=== PATIENT | male | born 1985 | race Caucasian/White ===

== ENCOUNTER 2020-07-07 23:22 | Inpatient (IN) | payer OTHER ==
[~2020-07-07] VITALS: Ht 172.7 cm; Wt 80.1 kg
[2020-07-08 00:07] LABS: BASO # 0.1 x10^3/uL (0.0-0.2); BASO % 0 % (0-3); EOS # 0.1 x10^3/uL (0.0-0.7); EOS % 1 % (0-3); HEMATOCRIT 49.7 % (39.0-53.0); HEMOGLOBIN 16.7 g/dL (13.0-17.5); LYMPH # 3.2 x10^3/uL (1.0-4.8); LYMPH % 24 % (24-48); MEAN CORPUSCULAR HEMOGLOBIN 30 pg (25-35); MEAN CORPUSCULAR HGB CONC 34 g/dL (31-37); MEAN CORPUSCULAR VOLUME 89 fL (79-100); MONO % 8 % (0-9); NEUT # 8.7 x10^3uL (1.8-7.7); NEUT % 66 % (31-73); PLATELET COUNT 226 x10^3/uL (140-400); RED BLOOD COUNT 5.56 x10^6/uL (4.30-5.70); RED CELL DISTRIBUTION WIDTH 13.8 % (11.5-14.5); WHITE BLOOD COUNT 13.1 x10^3/uL (4.0-11.0)
[2020-07-08 00:21] LABS: ALBUMIN 4.1 g/dL (3.4-5.0); ALBUMIN/GLOBULIN RATIO 1.5 (1.0-1.7); CALCIUM 9.7 mg/dL (8.5-10.1); CREATININE 1.3 mg/dL (0.7-1.3); GFR 62.1; POTASSIUM 3.5 mmol/L (3.5-5.1); TOTAL BILIRUBIN 0.5 mg/dL (0.2-1.0); TOTAL PROTEIN 6.9 g/dL (6.4-8.2)
--- NOTE | 2020-07-08 00:22 | RAD ---
EXAMINATION: PORTABLE CHEST 1V CLINICAL HISTORY: Epigastric pain EXAM DATE/TIME: 07/07/2020 11:52 PM COMPARISON: None FINDINGS: Lines, Tubes, and Devices: None. Cardiomediastinal Silhouette: Within normal limits. Lungs and Pleura: Pulmonary hypoexpansion without evidence of focal airspace consolidation or pleural effusion. Pulmonary vasculature unremarkable. Bones and Soft Tissues: Degenerative changes of the thoracic spine. IMPRESSION: No evidence of acute cardiopulmonary abnormality. Electronically signed by: Leonid Joiner DO (07/08/2020 12:19 AM) [facility]
--- NOTE | 2020-07-08 00:29 | PHYS DOC ---
Past History Past Medical History: No Pertinent History Past Surgical History: Appendectomy, Other Additional Past Surgical Histo: enguinal hernia repairs Alcohol Use: None Adult General Chief Complaint Chief Complaint: ABDOMINAL PAIN HPI HPI Patient is a 35-year-old male who presents with epigastric pain. Onset was reported 3 hours ago approximately 30 minutes after eating hamburger helper. Patient has history of GERD and indigestion and so, he attempted to take Pepto- Bismol and Tums without significant relief in symptoms prompting him to visit our ER for evaluation. Nothing known makes worse. Patient reports focal epigastric pain that is located under his xiphoid process and uncomfortable with palpation, there is no radiation, pain is reported to be 8/10 in severity but 6 out of 10 in severity when he lays completely still. Timing of symptoms has been constant since onset. Associated symptoms include lightheadedness, chills, nausea, and x1 episode of nonbloody nonbilious emesis in ER lobby. Patient reports prior appendectomy without any other intra-abdominal surgeries, denies any cardiac history, uses tobacco but no alcohol or other illicit drug use, no family history of cardiac disease. Patient is not on any daily medications, denies any recent fever or URI-like symptoms. Review of Systems Review of Systems Fourteen body systems of review of systems have been reviewed. See HPI for pertinent positives and negative responses, other berry all other systems are negative, non-pertinent or non-contributory Current Medications Current Medications Current Medications Medications (Trade) Dose Ordered Sig/Marika Start Time Stop Time Status Last Admin Dose Admin Multi-Ingredient Mouthwash/Gargle (Gi Cocktail) 20 ml 1X ONCE 07/08/20 00:30 07/08/20 00:31 Sodium Chloride 1,000 ml @ 1,000 mls/hr Q1H 07/08/20 00:30 07/08/20 01:29 Allergies Allergies Allergies Coded Allergies Type Severity Reaction Last Updated Verified No Known Drug Allergies 07/07/20 No Physical Exam Physical Exam Constitutional: Well developed, well nourished, no acute distress, non-toxic appearance. HENT: Normocephalic, atraumatic, bilateral external ears normal, oropharynx moist, no oral exudates, nose normal. Eyes: PERRLA, EOMI, conjunctiva normal, no discharge. Neck: Normal range of motion, no tenderness, supple, no stridor. Cardiovascular: Heart rate regular, sinus rhythm, no murmurs rubs or gallops Lungs & Thorax: Bilateral breath sounds clear to auscultation Abdomen: Bowel sounds normal, soft, epigastric tenderness with palpation, negative Hahn sign, negative Rovsing sign no masses, no pulsatile masses. Nonsurgical abdomen, no peritoneal signs Skin: Warm, dry, no erythema, no rash. Back: No tenderness, no CVA tenderness. Extremities: No tenderness, no cyanosis, no clubbing, ROM intact, no edema. Neurologic: Alert and oriented X 3, grossly normal motor & sensory function, no focal deficits noted. Psychologic: Affect normal, judgement normal, mood normal. Current Patient Data Vital Signs Vital Signs Date Time Temp Pulse Resp B/P (MAP) Pulse Ox O2 Delivery O2 Flow Rate FiO2 07/07/20 23:30 98.2 55 20 140/86 (104) 99 Lab Results Laboratory Tests Test 07/07/20 23:40 White Blood Count 13.1 x10^3/uL (4.0-11.0) H Red Blood Count 5.56 x10^6/uL (4.30-5.70) Hemoglobin 16.7 g/dL (13.0-17.5) Hematocrit 49.7 % (39.0-53.0) Mean Corpuscular Volume 89 fL (79-100) Mean Corpuscular Hemoglobin 30 pg (25-35) Mean Corpuscular Hemoglobin Concent 34 g/dL (31-37) Red Cell Distribution Width 13.8 % (11.5-14.5) Platelet Count 226 x10^3/uL (140-400) Neutrophils (%) (Auto) 66 % (31-73) Lymphocytes (%) (Auto) 24 % (24-48) Monocytes (%) (Auto) 8 % (0-9) Eosinophils (%) (Auto) 1 % (0-3) Basophils (%) (Auto) 0 % (0-3) Neutrophils # (Auto) 8.7 x10^3uL (1.8-7.7) H Lymphocytes # (Auto) 3.2 x10^3/uL (1.0-4.8) Monocytes # (Auto) 1.0 x10^3/uL (0.0-1.1) Eosinophils # (Auto) 0.1 x10^3/uL (0.0-0.7) Basophils # (Auto) 0.1 x10^3/uL (0.0-0.2) EKG EKG EKG ordered and interpreted by myself at 00 10 hours as sinus bradycardia at 48 bpm, unremarkable intervals, no axis deviation, no acute ischemic findings, no STEMI Radiology/Procedures Radiology/Procedures PROCEDURE: PORTABLE CHEST 1V EXAMINATION: PORTABLE CHEST 1V CLINICAL HISTORY: Epigastric pain EXAM DATE/TIME: 07/07/2020 11:52 PM COMPARISON: None FINDINGS: Lines, Tubes, and Devices: None. Cardiomediastinal Silhouette: Within normal limits. Lungs and Pleura: Pulmonary hypoexpansion without evidence of focal airspace consolidation or pleural effusion. Pulmonary vasculature unremarkable. Bones and Soft Tissues: Degenerative changes of the thoracic spine. IMPRESSION: No evidence of acute cardiopulmonary abnormality. Electronically signed by: Leonid Joiner DO (07/08/2020 12:19 AM) [facility] Heart Score HEART Score for Chest Pain: HEART Score for Chest Pain Response (Comments) Value History Slighlty/Non-Suspicious 0 ECG Normal 0 Age < 45 0 Risk Factors No Risk Factors 0 Troponin < Normal Limit 0 Total 0 Risk Factors: Risk Factors: DM, Current or recent (<one month) smoker, HTN, HLP, family history of CAD, obesity. Risk Scores: Risk Factors: DM, Current or recent (<one month) smoker, HTN, HLP, family history of CAD, obesity. Course & Med Decision Making Course & Med Decision Making Pertinent Labs and Imaging studies reviewed. (See chart for details) Discussed most likely diagnosis of acute pancreatitis given lipase value and physical exam findings. Patient still symptomatic despite ER intervention, I recommended hospital admission for continued medical care and patient was amenable. I discussed case with on-call physician, Dr. Fong who agreed to admission under his care. I discussed potential need for imaging once admitted inpatient at the discretion of hospitalist but for now, patient will require continued supportive care with IV fluid administration and IV pain medication. All questions and concerns addressed prior to ER transportation to [facility] in stable condition Dragon Disclaimer Dragon Disclaimer This electronic medical record was generated, in whole or in part, using a voice recognition dictation system. Departure Departure: Impression: Primary Impression: Pancreatitis Disposition: ADMITTED INPT THIS HOSP Admitting Physician: Nellie Fong Condition: STABLE Referrals: PCP,DAYANARA (PCP) MINH MACIEL DO Jul 08, 2020 00:29
[2020-07-08] MEDS ORDERED: LIDO:MAALOX 1:1 20 ML SINGLE DOSE. PO ONE (00:30)
[2020-07-08] MEDS ORDERED: IV NORMAL SALINE 1,000ML 1,000 ML IV SCH (00:30)
[2020-07-08] MEDS ORDERED: MORPHINE SULFATE 4 MG/ML DISP.SYRIN. IV ONE (01:30)
[2020-07-08 02:00] VITALS: BP 119/74
--- NOTE | 2020-07-08 02:35 | EKG ---
[address] [address] Test Date: 2020-07-08 Test Time: 00:07:11 Pat Name: NEAL CULVER Department: Room: Gender: M Machinist General: : 1985 Requested By: MINH MACIEL Order Number: [id number] Reading MD: Measurements Intervals [place] Rate: 48 P: 26 MD: 182 QRS: 73 QRSD: 80 T: 71 QT: 410 QTc: 366 Interpretive Statements SINUS BRADYCARDIA OTHERWISE NORMAL ECG RI6.02 No previous ECG available for comparison
[2020-07-08] MEDS: MORPHINE SULFATE 2 MG/ML DISP.SYRIN. IVP PRN ×2 (03:00→05:12)
[2020-07-08] MEDS: IV NORMAL SALINE 1,000ML 1,000 ML IV SCH ×2 (03:01→12:25)
[2020-07-08] MEDS ORDERED: CALC200T3 PO (03:12)
[2020-07-08] MEDS ORDERED: BISM525O8 PO (03:12)
[2020-07-08] MEDS ORDERED: ACET325T9 PO (03:12)
[2020-07-08] MEDS ORDERED: IBUP400T18 PO (03:12)
[2020-07-08 05:15] VITALS: BP 123/83
[2020-07-08] MEDS ORDERED: ONDANSETRON PF 4 MG/2 ML VIAL. IVP PRN (05:15)
[2020-07-08] MEDS ORDERED: HYDROmorphone PF 2 MG/ML VIAL IVP PRN (09:00)
[2020-07-08] MEDS ORDERED: FLU VACC QS 2020-21(6MOS+)/PF 0.5 ML SYRINGE. VAX IM ONE (09:00)
[2020-07-08 09:40] LABS: HEMATOCRIT 48.4 % (39.0-53.0); RED BLOOD COUNT 5.39 x10^6/uL (4.30-5.70); RED CELL DISTRIBUTION WIDTH 13.7 % (11.5-14.5); WHITE BLOOD COUNT 11.3 x10^3/uL (4.0-11.0)
--- NOTE | 2020-07-08 09:47 | RAD ---
Abdominal ultrasound 07/08/2020. Reason for exam: Pancreatitis. FINDINGS: The liver is homogeneous in echotexture, and no intrahepatic or extrahepatic ductal dilatation is seen. The gallbladder is free of stones or wall thickening. The right kidney and abdominal aorta appear normal. The visualized portion of the pancreas also appears normal. Some of the distal tail may be obscured. IMPRESSION: No apparent abnormality. Electronically signed by: José Miguel Rodney Jr., MD (07/08/2020 9:44 AM) [facility]
[2020-07-08 09:53] LABS: CALCIUM 8.9 mg/dL (8.5-10.1); CREATININE 1.2 mg/dL (0.7-1.3); GFR 68.1; POTASSIUM 4.2 mmol/L (3.5-5.1)
[2020-07-08 10:09] LABS: ALBUMIN 3.8 g/dL (3.4-5.0); ALBUMIN/GLOBULIN RATIO 1.3 (1.0-1.7); TOTAL BILIRUBIN 0.6 mg/dL (0.2-1.0); TOTAL PROTEIN 6.7 g/dL (6.4-8.2)
[2020-07-08 10:43] VITALS: BP 115/73
[2020-07-08 14:56] VITALS: BP 120/76
--- NOTE | 2020-07-08 15:39 | HP ---
ADMIT DATE: 07/08/2020 HISTORY OF PRESENT ILLNESS: The patient is a 35-year-old male patient who came to the Emergency Room complaining of severe epigastric pain that was associated with nausea and vomiting. It does not radiate through and through to the back. The pain started about 3 hours prior to arrival to the Emergency Room about 30 minutes after eating Hamburger [employer]. He has a history of gastroesophageal reflux disease and indigestion. He attempted to take Pepto-Bismol and Tums without significant relief, prompting his visit to the ER for evaluation. His pain was rated up to 9/10 ____ located mostly under his xiphoid process, uncomfortable with palpation. There is no radiation to the back. The severity of pain improves when he is lying still. He did complain of lightheadedness, chills, nausea and one episode of nonbloody, nonbilious emesis in the Emergency Room. He has had a history of appendectomy as well as bilateral inguinal hernia repair when he was a child. He was evaluated in the Emergency Room and his lab work showed that he has severe pancreatitis with serum lipase of 59,600 with marked leukocytosis. The patient was admitted with diagnosis of acute pancreatitis, started on IV fluid, pain medication and antiemetic. PAST MEDICAL HISTORY: Unremarkable except for gastroesophageal reflux disease. PAST SURGICAL HISTORY: Significant for appendectomy, bilateral inguinal hernia repair. ALLERGIES: He has no known drug allergies. MEDICATIONS: Currently, he is not on any prescription medication use, Aleve and ibuprofen, and Tylenol [id number] for aches and pains. FAMILY HISTORY: He has half-brother and sister, both younger. His father is alive at age of 56 and apparently healthy. His mother is alive at age of 55. SOCIAL HISTORY: He is and has 2 daughters. He smokes half to 1 pack a day, does not drink alcohol, quit drinking about 15 years ago. Does not use any drugs. He is in the [employer]. PHYSICAL EXAMINATION: GENERAL: On arrival to the Emergency Room, he apparently was in no apparent respiratory distress. There was no pallor, jaundice, cyanosis or thyromegaly. No jugular venous distention or limb edema. VITAL SIGNS: His heart rate was 55, blood pressure 140/86, temperature was 98.2, respiratory rate was 20, and oxygen saturation was 99%. HEAD, EYES, EARS, NOSE AND THROAT: Normocephalic, atraumatic. NECK: Supple. HEART: Showed normal first and second heart sounds. No gallop or murmur. CHEST: Clear to auscultation. No crepitation or rhonchi. ABDOMEN: Distended, soft, nontender with tenderness mostly in the epigastric area. NEUROLOGIC: He is awake, alert, responding appropriately. All cranial nerves intact. EXTREMITIES: He moves extremities without difficulty. He ambulates without assistance or assistive devices. LABORATORY DATA: His lab work on admission showed a white cell count of 13,000, hemoglobin 16.7, hematocrit 50, MCV 89 and platelet count 226,000. His serum sodium 140, potassium 3.5, chloride 103, bicarbonate 29, anion gap of 8, BUN 10, creatinine 1.3, estimated GFR was 62 mL per minute. His glucose 116, calcium was 9.7. Total bilirubin and alkaline phosphatase were normal. AST and ALT elevated. His total protein was 6.9, albumin was 4.2. Serum lipase was 59,600. The patient was admitted with acute pancreatitis, started initially on IV morphine and IV fluid together with ondansetron, however, his pain was not well controlled and therefore we switched him to hydromorphone 2 mg IV every 3 hours. I did repeat his lab work and it showed that his serum sodium was 141, potassium 4.2, chloride 106, bicarbonate 28, anion gap of 7, BUN 8, creatinine 1.2, estimated GFR was 68 mL per minute. His glucose was 121. Total bilirubin 0.6. AST and alkaline phosphatase normal. ALT slightly elevated. His total protein was 6.7. Albumin was 3.8 and his serum lipase was 5800. IMAGING DATA: We did order abdominal ultrasound, which showed that the gallbladder is free of stones or wall thickening. The right kidney and abdominal aorta appears normal. The visualized portion of the pancreas also appears normal. Some of the distal tail may be obscured. ASSESSMENT AND PLAN: As the patient denied any alcohol intake and also his ultrasound was unremarkable with no evidence of acute cholecystitis or cholelithiasis, I recommended to look further for some underlying cause of his pancreatitis and we recommended to check at least his lipid panel. The patient decided to leave against medical advice despite our attempts to convince him to stay. BOBBY MORFIN MD DR: Rylee JOB#: [id number] / [id number]
== END 2020-07-08 15:18 | disposition left against medical advice (07) | DRG 438 ==
LOC: ER 23:22 → 1 SOUTH 07-08 01:07
PROVIDERS: ADMIT Internal Medicine; ATTEND Internal Medicine
DX: K85.90 Acute pancreatitis without necrosis or infection, unspecified (principal); R65.11 Systemic inflammatory response syndrome (SIRS) of non-infectious origin with acute organ dysfunction; Z87.891 Personal history of nicotine dependence; Z90.49 Acquired absence of other specified parts of digestive tract; K21.9 Gastro-esophageal reflux disease without esophagitis; Z53.29 Procedure and treatment not carried out because of patient's decision for other reasons; Z79.899 Other long term (current) drug therapy
CPT/HCPCS: 36415; 71045; 76705; 80053; 83690; 84484; 85025; 85027; 93005; 96361; 96374; 99406; J1170; J2270; J2405; 99285-25; J7030